=== PATIENT | female | born 1975 | race Caucasian/White ===

== ENCOUNTER 2025-05-26 09:18 | Outpatient (CLI) | payer OTHER, SELFPAY ==
[2025-05-26 13:08] LABS: Chlamydia DNA Amplified* NOT DETECTED (No Detected); GC DNA Amplified* NOT DETECTED (No Detected)
[2025-05-27 23:51] LABS: HPV Source Cervical
[2025-06-01 09:09] LABS: Pap Test Digital Imaging Done
== END 2025-05-26 09:19 | disposition home or self-care (01) ==
PROVIDERS: Visit Provider Registered Nurse
DX: Z12.4 Encounter for screening for malignant neoplasm of cervix (principal); Z11.3 Encounter for screening for infections with a predominantly sexual mode of transmission; Z11.51 Encounter for screening for human papillomavirus (HPV); Z11.4 Encounter for screening for human immunodeficiency virus [HIV]; Z11.59 Encounter for screening for other viral diseases; Z13.6 Encounter for screening for cardiovascular disorders; Z13.1 Encounter for screening for diabetes mellitus
CPT/HCPCS: 80061; 81513; 82947; 86592; 86703; 86803; 87340; 87481; 87491; 87591; 87624; 87625; 87661; 88141; 88142; 88175

== ENCOUNTER 2025-06-02 13:56 | Outpatient (CLI) | payer OTHER, SELFPAY ==
--- NOTE | 2025-06-02 14:00 | CRLHL7_ITS ---
For Patients: As a result of the Century Cures Act, medical imaging exams and procedure reports are released immediately into your electronic medical record. You may view this report before your referring provider. If you have questions, please contact your health care provider. INDICATION: BILATERAL SCREENING MAMMOGRAM, ASYMPTOMATIC 50 Y/O FEMALE COMPARISON: BASELINE TECHNIQUE: Digital mammogram in CC and MLO projections including computer-aided detection (CAD) and tomosynthesis. BREAST COMPOSITION: The breasts are heterogeneously dense, which may obscure small masses. FINDINGS: No suspicious findings. ASSESSMENT: BI-RADS 2 Benign RECOMMENDATION: Annual screening mammogram. A lay language report of this examination will be provided to the patient. Dictated by: Margarito Fish MD @ 06/05/2025 08:28:28 (Electronically Signed)
--- NOTE | 2025-06-02 14:45 | CRLHL7_ITS ---
For Patients: As a result of the Century Cures Act, medical imaging exams and procedure reports are released immediately into your electronic medical record. You may view this report before your referring provider. If you have questions, please contact your health care provider. INDICATION: Hypertrophy of uterus COMPARISON: None. TECHNIQUE: 2D jimeenz-scale and color Doppler images were acquired of the pelvis using a transabdominal and transvaginal approach. Transvaginal imaging performed to better visualize the endometrial stripe and ovaries. FINDINGS: Left intramural fibroid measures 2.1 x 1.5 x 1.9 cm. Additional left-sided fibroid measures 2.3 x 2.1 x 2.1 cm. Cervical nabothian cysts are present. Uterus measures 12.6 cm in length by 6.3 cm in AP diameter by 7.0 cm in transverse dimension. The myometrium has a heterogeneous echotexture. The endometrial lining measures 14.3 mm in composite thickness. The right ovary measures 3.7 x 2.3 x 3.7 cm in size and the left ovary measures 2.8 x 1.5 x 1.0 cm. The ovaries demonstrate normal arterial and venous blood flow on color Doppler analysis. There are no suspicious fluid collections within the cul-de-sac. Simple right ovarian cyst measures 3.2 x 2.1 x 2.8 cm. IMPRESSION: Heterogeneous myometrium with 2 left-sided intramural fibroids measuring 2.3 cm and 2.1 cm. Dictated by Margarito Fish MD @ 06/02/2025 4:37:35 PM (Electronically Signed)
== END 2025-06-02 13:57 | disposition home or self-care (01) ==
LOC: MAMMO 13:57
PROVIDERS: Visit Provider Registered Nurse
DX: Z12.31 Encounter for screening mammogram for malignant neoplasm of breast (principal); R92.333 Mammographic heterogeneous density, bilateral breasts; N85.2 Hypertrophy of uterus; D25.1 Intramural leiomyoma of uterus
CPT/HCPCS: 76830; 76856; 77063; 77067